=== PATIENT | female | born 1955 | race Caucasian/White ===

== ENCOUNTER → 2019-12-15 14:02 | Outpatient (CLI) | payer MEDICARE, SELFPAY ==
--- NOTE | ~2019-12-15 | MM_ITS ---
EXAMINATION: MM screening kofi BI w myra HISTORY: Screening mammogram TECHNIQUE: Craniocaudal and mediolateral oblique 3-D tomosynthesis images were obtained and synthetic 2-D images were generated. CAD analysis was submitted and interpreted. COMPARISON: 07/03/2018 diagnostic left digital mammogram and limited left breast ultrasound 06/29/2018 bilateral digital screening mammogram 06/25/2016 diagnostic left digital mammogram and limited left breast ultrasound 06/07/2016 bilateral digital screening mammogram BREAST PARENCHYMAL COMPOSITION: There are scattered areas of fibroglandular density. FINDINGS: There is no evidence of suspicious mass, calcification, or architectural distortion to sugg est malignancy in either breast. There has been no suspicious interval change. IMPRESSION: 1. No mammographic evidence of malignancy. 2. Recommend routine screening mammography in one year. BI-RADS Category 2: Benign finding(s). Reviewed, dictated and finalized at location A.
== END ==
PROVIDERS: Visit Provider Obstetrics & Gynecology
DX: Z12.31 Encounter for screening mammogram for malignant neoplasm of breast (principal)
CPT/HCPCS: 77063; 77067

== ENCOUNTER → 2021-02-07 17:46 | Outpatient (CLI) | payer MEDICARE, SELFPAY ==
--- NOTE | ~2021-02-07 | MM_ITS ---
EXAMINATION: MM screening kofi BI w myra HISTORY: Screening TECHNIQUE: Craniocaudal and mediolateral oblique 3-D tomosynthesis images were obtained and synthetic 2-D images were generated. CAD analysis was submitted and interpreted. COMPARISON: Comparison to multiple prior studies sequentially, with oldest reviewed study dated 06/07. BREAST PARENCHYMAL COMPOSITION: The breasts are heterogenously dense, which may obscure small masses FINDINGS: There is no evidence of suspicious mass, calcification, or architectural distortion to sugg est malignancy in either breast. There has been no suspicious interval change. IMPRESSION: 1. No mammographic evidence of malignancy. 2. Recommend routine screening mammography in one year. BI-RADS Category 1: Negative Reviewed, dictated and finalized at location A.
--- NOTE | ~2021-02-07 | DEXA_ITS ---
Bone Density Report Name: Elinor Garcia Age: 65 Sex: Female Ethnicity: White Date of : 1955 Indication: postmenopausal; screening for osteoporosis; parental hip fracture; height loss; Referring Provider: Frankie, Jenny Reina Study: Bone densitometry was performed. Exam Date: February 07, 2021 Accession number: [id number] Bone Density: Region BMD T-score Z-score Classification AP Spine (L1-L4) 1.001 -0.4 1.5 Normal Femoral Neck (Left) 0.669 -1.6 0.0 Osteopenia Total Hip (Left) 0.833 -0.9 0.4 Normal Femoral Neck (Right) 0.659 -1.7 -0.1 Osteopenia Total Hip (Right) 0.870 -0.6 0.8 Normal Total Hip Mean 0.852 -0.8 0.6 Normal World Health Organization criteria for BMD impression classify patients as: Normal (T-score at or above -1.0), Osteopenia (T-score between -1.0 and -2.5), or Osteoporosis (T-score at or below -2.5). 10-year Fracture Risk(1): Major Osteoporotic Fracture 20% Hip Fracture 3.0% Reported Risk Factors: [place] (), Neck BMD=0.659, BMI=23.4, parental fracture, alcohol use (1) FRAX(R) Version 3.08. Fracture probability calculated for an untreated patient. Fracture probability may be lower if the patient has received treatment. Previous Exams: Region Exam Age BMD T-score BMD Change BMD Change Date g/cm2 vs Baseline vs Previous AP Spine(L1-L4) 02/07/2021 65 1.001 -0.4 -0.038* -0.042* 05/08/2015 59 1.042 0.0 0.004 -0.015 04/08/2011 55 1.057 0.1 0.019 0.019 02/24/2008 52 1.039 -0.1 Total Hip(Left) 02/07/2021 65 0.833 -0.9 -0.051* -0.019 05/08/2015 59 0.851 -0.7 -0.032* -0.019 04/08/2011 55 0.870 -0.6 -0.013 -0.013 02/24/2008 52 0.883 -0.5 Total Hip(Right) 02/07/2021 65 0.870 -0.6 -0.028* -0.019 05/08/2015 59 0.889 -0.4 -0.009 -0.003 04/08/2011 55 0.893 -0.4 -0.006 -0.006 02/24/2008 52 0.898 -0.4 *Denotes significance at 95% confidence level, LSC for AP Spine = 0.022 g/cm2, LSC for Total Hip = 0.027 g/cm2 Clinical Information Provided by Patient: Parent has had a hip fracture Has 3 or more alcoholic drinks per day Has used the following medications: Vitamin D, [employer] Patient maximum height was 65.5 Menopause Age: 49 Drinks caffeinated beverages Onset of menses at age 11 Number of children 1
== END ==
PROVIDERS: PCP Family Medicine Adolescent Medicine; Visit Provider Nurse Practitioner Obstetrics & Gynecology
DX: Z78.0 Asymptomatic menopausal state (principal); Z12.31 Encounter for screening mammogram for malignant neoplasm of breast; M85.852 Other specified disorders of bone density and structure, left thigh; M85.851 Other specified disorders of bone density and structure, right thigh
CPT/HCPCS: 77063; 77067; 77080

== ENCOUNTER → 2022-03-21 09:30 | Outpatient (CLI) | payer MEDICARE, SELFPAY ==
--- NOTE | ~2022-03-21 | XR_ITS ---
XR hand RT min 3V DATE: 03/21/2022 10:03 INDICATION: Right hand pain TECHNIQUE: 3 views COMPARISON: None FINDINGS: There is osteopenia. There is severe osteoarthritic change at the triscaphe joint. There is osteophytic change at the merle culation between the lunate and capitate bones. Mild osteoarthritis at the first carpometacarpal join t. There is mild-moderate osteoarthritis at multiple interphalangeal joints. IMPRESSION: Polyarticular osteoarthritis Osteopenia Reviewed, dictated and finalized at location B.
== END ==
PROVIDERS: PCP Physician Assistant; Visit Provider Physician Assistant
DX: M18.11 Unilateral primary osteoarthritis of first carpometacarpal joint, right hand (principal); M19.041 Primary osteoarthritis, right hand
CPT/HCPCS: 73130

== ENCOUNTER 2022-06-04 00:55 | Day surgery (SDC) | payer MEDICARE, SELFPAY ==
[2022-05-22 11:30] VITALS: BMI 23.9
--- NOTE | 2022-06-03 14:00 | WPDANESEPPF ---
Anes - Initial Pre Proc Eval Procedure: Operation Date: 06/04/22 08:00 Proposed Procedures p Screening Colonoscopy - Feng Mahoney MD Date/Time: 06/03/22 14:00 Surgeon: Feng Mahoney MD Pre Op Diagnosis: neoplasm screening Patient Data Age: 66 Gender: F Height: 1.65 m Weight: 65.3 kg Allergies Allergy/AdvReac Type Severity Reaction Status Date / Time No Known Allergies Allergy Verified 06/04/22 06:45 Home Medications Medication Instructions Recorded Confirmed Type peg 3350-electrolytes 236 240 ml PO Q10M #4,000 mL 04/11/22 05/22/22 Rx gram-22.74 gram-6.74 gram-5.86 gram solution (Golytely) diclofenac sodium 75 mg 75 mg PO BID #60 tabs 04/17/22 05/22/22 Rx tablet,delayed release Patient hx anesthesia problems: none Family hx anesthesia problems: none Results Review: All pre-operative results and documents have been reviewed as part of the pre-operative evaluation. [facility] Family History Family History Father Family history of malignant melanoma Mother Bipolar disorder Other Cerebrovascular accident Diabetes mellitus Family history of cardiovascular disease Hypertension Social History Social History (Updated 03/21/22 @ 08:27 by Skye Osorio MA) Smoking status: Never smoker Second hand tobacco smoke exposure: No Alcohol intake: current Drinks per week: 15 Substance use: never Substance use type: does not use Living arrangements: alone Gender identity (if verbalized by the patient): Female Spiritual care concerns: No Agree to blood products: Yes Anes - Eval Final PreProcedure Day of Procedure 06/03/22 14:00 Patient weight: normal Heart: regular rate and rhythm Lungs: clear to auscultation Airway: Mallampati scale class II Neurological: alert and oriented Last oral intake: >/= 8 hours ASA classification: II Emergent: no Anesthetic plan: proceed Anesthesia type and monitoring: general GIVS and standard monitoring Results Review: All pre-operative results and documents have been reviewed as part of the pre-operative evaluation. Informed Consent: The patient's anesthetic plan and its attendant risks and benefits were discussed with the patient/family/POA. Questions were solicited and answers provided to the satisfaction of the patient/family/POA.
[2022-06-04 06:47] VITALS: BP 159/78; PULSE 64; RESP 18; TEMP 36.2; O2SAT 99
[2022-06-04] MEDS: LACTATED RINGERS 1,000 ML 150 ML IV CONT (06:54)
--- NOTE | 2022-06-04 07:23 | PM.IMHP ---
H&P: HPI History of Present Illness Date/Time: 06/04/22 07:23 Chief Complaint: Neoplasia screening. Narrative: This is a 66-year-old white female patient presents for screening colonoscopy. Patient's current weight appetite and bowel movements are normal. Patient denies abdominal pain. She has had no bleeding. Family history is noncontributory. Patient presents today for screening colonoscopy. Review of Systems Review of Systems: Review of systems noncontributory. [facility] Family History Family History Father Family history of malignant melanoma Mother Bipolar disorder Other Cerebrovascular accident Diabetes mellitus Family history of cardiovascular disease Hypertension Social History Social History (Updated 03/21/22 @ 08:27 by Skye Osorio MA) Smoking status: Never smoker Second hand tobacco smoke exposure: No Alcohol intake: current Drinks per week: 15 Substance use: never Substance use type: does not use Living arrangements: alone Gender identity (if verbalized by the patient): Female Spiritual care concerns: No Agree to blood products: Yes Meds Home Medications and Allergies Home Medications Medication Instructions Recorded Confirmed Type peg 3350-electrolytes 236 240 ml PO Q10M #4,000 mL 04/11/22 05/22/22 Rx gram-22.74 gram-6.74 gram-5.86 gram solution (Golytely) diclofenac sodium 75 mg 75 mg PO BID #60 tabs 04/17/22 05/22/22 Rx tablet,delayed release Allergies Allergy/AdvReac Type Severity Reaction Status Date / Time No Known Allergies Allergy Verified 06/04/22 06:45 Vital Signs Vital Signs - 24 hr 06/04/22 06:47 Temperature 97.1 F L Pulse Rate 64 Respiratory Rate 18 Blood Pressure 159/78 H Pulse Oximetry 99 Oxygen Delivery Room Air Exam Narrative: Physical exam reveals patient to be alert. Vital signs stable. HEENT exam is unremarkable. Patient is anicteric. Lungs are clear to auscultation and percussion. Heart is without murmur or extra sounds. Abdominal exam bowel sounds are present soft nontender with no organomegaly. Digital external rectal exam is normal. Assessment and Plan Assessment and plan (1) Encounter for screening colonoscopy: Code(s): Z12.11 - Encounter for screening for malignant neoplasm of colon Status: Acute Assessment and Plan: Patient presents today for screening colonoscopy. She appears to be at average risk for colon polyps. Further recommendations will be given after endoscopy.
[2022-06-04 07:56] VITALS: BP 115/58; PULSE 58; RESP 20; O2SAT 99
[2022-06-04 08:06] VITALS: BP 127/68; PULSE 59; RESP 22; O2SAT 100
[2022-06-04 08:16] VITALS: BP 141/85; PULSE 57; RESP 19; O2SAT 100
== END 2022-06-04 08:23 | disposition home or self-care (01) ==
PROVIDERS: PCP Physician Assistant; Visit Provider Internal Medicine Gastroenterology
PROC: 0DJD8ZZ Inspection of Lower Intestinal Tract, Via Natural or Artificial Opening Endoscopic (ICD-10-PCS; CPT 45378; principal; 2022-06-04 08:00)
DX: Z12.11 Encounter for screening for malignant neoplasm of colon (principal); K63.5 Polyp of colon; K57.30 Diverticulosis of large intestine without perforation or abscess without bleeding
CPT/HCPCS: 45385; 88305; J2001; J2704; J7120

== ENCOUNTER → 2023-07-08 12:26 | Outpatient (CLI) | payer MEDICARE, SELFPAY ==
--- NOTE | ~2023-07-08 | MM_ITS ---
EXAMINATION: MM screening kofi BI w myra HISTORY: Screening TECHNIQUE: Craniocaudal and mediolateral oblique 3-D tomosynthesis images were obtained and synthetic 2-D images were generated. CAD analysis was submitted and interpreted. COMPARISON: Comparison to multiple prior studies sequentially, with oldest reviewed study dated 06/07. BREAST PARENCHYMAL COMPOSITION: There are scattered areas of fibroglandular density. FINDINGS: There is no evidence of suspicious mass, calcification, or architectural distortion to sugg est malignancy in either breast. There has been no suspicious interval change. IMPRESSION: 1. No mammographic evidence of malignancy. 2. Recommend routine screening mammography in one year. BI-RADS Category 1: Negative Reviewed, dictated and finalized at location A.
== END ==
PROVIDERS: PCP Family Medicine Adolescent Medicine; Visit Provider Family Medicine Adolescent Medicine
DX: Z12.31 Encounter for screening mammogram for malignant neoplasm of breast (principal)
CPT/HCPCS: 77063; 77067

== ENCOUNTER 2024-09-13 15:06 | Emergency (ER) | payer MEDICARE, SELFPAY ==
--- NOTE | ~2024-09-13 | XR_ITS ---
XR hand RT min 3V Ordering provider: Tamiko Castro NP History: . swelling, pain prox metacarpals 2-4, fell 3 weeks ago . Comparison: None. FINDINGS: BONES: No acute fracture or dislocation. JOINT SPACES: Narrowing of the proximal and distal interphalangeal joints. Narrowing of the joint bet ween the lunate and capitate bone. Narrowing also of the joint between the scaphoid and trapezium bon e. SOFT TISSUES: Normal. IMPRESSION: No acute osseous abnormality right hand. Polyarticular osteoarthritic changes. Reviewed, dictated and finalized at location A. FICO BUSINESS ANALYST
[2024-09-13 15:18] VITALS: BP 147/93; PULSE 85; RESP 16; TEMP 36.8; O2SAT 98
--- NOTE | 2024-09-13 15:31 | ED_ITS ---
HPI - Extremity Injury (Upper) General Chief Complaint: Extremity Injury, Upper Stated Complaint: Xray Right Hand Time Seen by Provider: 09/13/24 15:40 Source: patient and RN notes reviewed Mode of arrival: ambulatory Limitations: no limitations History of Present Illness HPI narrative: 68-year-old female presents with concern for pain in her right dorsal hand. Reports about 3 weeks ago she fell and caught herself on her hand has been having pain since then. She reports swelling. She reports tenderness. She reports she has been taking steroids for another problem but they are not helping with her pain. She has a history of osteoarthritis. She denies decreased strength, sensation, range of motion in the digits MD complaint: injury to: right and hand Related Data Home Medications ?Medication ?Instructions ?Recorded ?Confirmed ?Last Taken ?Type prednisone 20 mg tablet mg 09/13/24 Unknown History Allergies Allergy/AdvReac Type Severity Reaction Status Date / Time No Known Allergies Allergy Verified 09/13/24 15:20 Review of Systems Review of Systems: CONSTITUTIONAL: Denies malaise, chills, sweats, or fever. CARDIOVASCULAR: Denies chest pain, palpitations, or edema. RESPIRATORY: Denies cough or dyspnea. SKIN: Denies rash or itching, bruising, redness MUSCULOSKELETAL: Reports right hand pain and swelling NEUROLOGIC: Denies numbness, weakness All systems reviewed & are unremarkable except as noted in HPI and below PMFSH Family History Family History Father Family history of malignant melanoma Mother Bipolar disorder Other Cerebrovascular accident Diabetes mellitus Family history of cardiovascular disease Hypertension Social History Social History Smoking status: Never smoker Second hand tobacco smoke exposure: No Alcohol intake: current Drinks per week: 15 Substance use: never Substance use type: does not use Lack of Transportation: No Lack of Food: Never True Current Housing: I Have Housing Concerned About Future Housing: No Difficulty Paying Gas/Electric Bills: No Difficulty Paying for Meds: No Currently Unemployed: No Education: Bachelor's Degree Difficulty w/ Childcare or Family Care: No Living arrangements: alone Occupation/Education: occupation Gender identity (if verbalized by the patient): Female Spiritual care concerns: No Agree to blood products: Yes Comments At time of signature, agree with nursing past medical, surgical, social and family history. There is no relevant family history pertinent to the presenting complaint Exam Narrative: GENERAL: Well-appearing, well-nourished, and in no acute distress. HEAD: Normocephalic EYES: PERRLA, conjunctivae clear NECK: Supple. CHEST: Speaks in full sentences. No respiratory distress. HEART: Regular rate and rhythm. Normal and equal peripheral pulses. EXTREMITIES: Right hand and digits of hand have normal strength and sensation. 5/5 strength with digit flexion, extension. Range of motion normal. No clubbing, cyanosis. Dorsal edema and tenderness noted. Skin intact. Normal digital cascade with flexion of fingers, median, ulnar and radial nerve intact. Normal sensation of each side of finger. Can perform 'okay' sign, 'cross over finger test of index and middle fingers' and 'thumbs up' sign. No scissoring. Normal thumb opposition. Good capillary refill and radial pulse. Distal capillary refill less than 3 seconds. Patient is right/left hand dominant SKIN: Warn, dry, intact, pink. No rash NEURO: Alert and oriented x3. PSYCH: Normal mood and affect Course Course Emergency Course: Patient is aware of diagnosis, understands and agrees to treatment plan. Anticipatory guidance given. Patient agrees to follow-up as directed and is aware of reasons to seek care at the emergency department. Portions of this record may have been created with voice recognition software Level of Care: Express Care Visit Vital Signs Vital signs: Vital Signs Temperature 98.3 F 09/13/24 15:18 Pulse Rate 85 09/13/24 15:18 Respiratory Rate 16 09/13/24 15:18 Blood Pressure 147/93 H 09/13/24 15:18 Pulse Oximetry 98 09/13/24 15:18 Temperature 98.3 F 09/13/24 15:18 Pulse Rate 85 09/13/24 15:18 Respiratory Rate 16 09/13/24 15:18 Blood Pressure 147/93 H 09/13/24 15:18 Pulse Oximetry 98 09/13/24 15:18 Reviewed. MDM - Extremity Injury (Upper) MDM Narrative Medical decision making narrative: Patients injury and pain is consistent with musculoskeletal etiology. No signs of neurological or vascular compromise on exam. Compartments and tissues are soft without signs of compartment syndrome. Pain is felt appropriate for further evaluation on an outpatient basis. Imaging Data My impression: Images reviewed, interpreted by radiologist, agree, see report. Radiologist's impression: Comparison: None. FINDINGS: BONES: No acute fracture or dislocation. JOINT SPACES: Narrowing of the proximal and distal interphalangeal joints. Narrowing of the joint between the lunate and capitate bone. Narrowing also of the joint between the scaphoid and trapezium bone. SOFT TISSUES: Normal. IMPRESSION: No acute osseous abnormality right hand. Polyarticular osteoarthritic changes. Critical Care Time Critical Care Time Critical Care Time: No Discharge Plan Discharge Clinical Impression: Hand pain, right Patient Disposition: Home, Self-Care Condition: Stable Instructions: Osteoarthritis (ED) Additional Instructions: Your x-ray is normal Avoid activities that cause pain until the pain subsides. Ice to the area 20-30 minutes 4-6 times a day Elevate above heart Elastic wrap as directed for comfort for the next 5-7 days Tylenol for lesser pain Anti-inflammatories as needed Follow up with your primary care provider if the condition is not improving within 1 week. If the condition worsens with numbness, tingling, decrease sensation with weakness seek treatment in the emergency room immediately. Patient Language: Vietnamese Prescriptions: No Action prednisone 20 mg tablet diclofenac sodium 75 mg tablet,delayed release (DR/EC) 75 mg PO BID Qty: 60 4RF tramadol 50 mg tablet 50 mg PO BID PRN (Reason: pain) Qty: 20 0RF Follow-up/Referrals: Zenon Abad MD [Primary Care Provider] - Time of Disposition: 16:17
== END 2024-09-13 16:22 | disposition home or self-care (01) ==
PROVIDERS: Emergency Provider Nurse Practitioner; PCP Family Medicine Adolescent Medicine
DX: M79.641 Pain in right hand (principal); Z79.899 Other long term (current) drug therapy; W19.XXXA Unspecified fall, initial encounter
CPT/HCPCS: 73130; 99213; G0463

== ENCOUNTER 2024-09-14 11:16 | Emergency (ER) | payer MEDICARE, SELFPAY ==
--- NOTE | ~2024-09-14 | CT_ITS ---
EXAMINATION: CT brain wo con DATE: 09/14/2024 11:35 INDICATION: Head injury. TECHNIQUE: Computed tomography (CT) of the head was performed without intravenous contrast. The mA wa s adjusted according to patient size. Iterative reconstruction technique was employed. The dose-lengt h product was 605.33 mGy-cm. COMPARISON: None FINDINGS: There is no intracranial hemorrhage, acute infarction, or abnormal intracranial mass lesion . The ventricles are normal in size. The orbits are normal. There is mild mucosal thickening in the p aranasal sinuses. The mastoid air cells are normal. IMPRESSION: 1. Normal brain. Reviewed, dictated and finalized at location A. UNT MANAGEMENT SPECIALIST IMPRESSION: 1. Normal brain.
[2024-09-14 11:20] VITALS: BP 145/81; PULSE 98; RESP 16; TEMP 36.4; O2SAT 98
[2024-09-14 12:18] VITALS: BP 132/83; PULSE 75; RESP 17; O2SAT 96
--- NOTE | 2024-09-14 12:27 | ED_ITS ---
HPI - Fall General Chief Complaint: Fall Stated Complaint: fell and hit head Time Seen by Provider: 09/14/24 11:23 History of Present Illness HPI Narrative: 68-year-old female presenting to the emergency department for chief complaint of a closed head injury. She has been starting taking a new medication including tramadol yesterday for her hand ache and arthritis pain. She states she felt slightly dizzy after taking this medication and did fall to the ground while in the bathroom and hit her head on the toilet C. she did reportedly lose consciousness but does not take any blood thinner medications. She is presently awake alert oriented has no acute complaints. She denies any headache, injuries, bleeding, nausea, vomiting. She has otherwise been acting appropriately, has family at bedside. Related Data Home Medications ?Medication ?Instructions ?Recorded ?Confirmed ?Last Taken ?Type prednisone 20 mg tablet mg 09/13/24 Unknown History Allergies Allergy/AdvReac Type Severity Reaction Status Date / Time No Known Allergies Allergy Verified 09/14/24 11:23 Review of Systems Review of Systems: As [facility] Family History Family History Father Family history of malignant melanoma Mother Bipolar disorder Other Cerebrovascular accident Diabetes mellitus Family history of cardiovascular disease Hypertension Social History Social History Smoking status: Never smoker Second hand tobacco smoke exposure: No Alcohol intake: current Drinks per week: 15 Substance use: never Substance use type: does not use Lack of Transportation: No Lack of Food: Never True Current Housing: I Have Housing Concerned About Future Housing: No Difficulty Paying Gas/Electric Bills: No Difficulty Paying for Meds: No Currently Unemployed: No Education: Bachelor's Degree Difficulty w/ Childcare or Family Care: No Living arrangements: alone Occupation/Education: occupation Gender identity (if verbalized by the patient): Female Spiritual care concerns: No Agree to blood products: Yes Exam Narrative: GENERAL: [Well-appearing, well-nourished, and in no acute distress.] HEAD: Posterior scalp hematoma but no obvious bleeding or any palpable step- offs deformities. Otherwise normocephalic EYES: [PERRLA and EOMI.] ENT: Nares clear, no rhinorrhea or epistaxis. Mucous membranes moist. NECK: Supple. CHEST: [Clear to auscultation. No respiratory distress.] HEART: [Regular rate and rhythm]. No murmur heard. [Normal peripheral pulses.] ABDOMEN: [Soft, nondistended], [nontender], [No rigidity or guarding] EXTREMITIES: Normal range of motion. [No edema.] SKIN: Warm, dry, no rash. NEURO: [No focal deficits]. Alert and oriented [x3.] PSYCH: [Normal mood and affect.] Course Vital Signs Vital signs: Vital Signs Temperature 36.4 C 09/14/24 11:20 Pulse Rate 98 09/14/24 11:20 Respiratory Rate 16 09/14/24 11:20 Blood Pressure 145/81 H 09/14/24 11:20 Pulse Oximetry 98 09/14/24 11:20 Oxygen Delivery Room Air 09/14/24 11:20 Temperature 36.4 C 09/14/24 11:20 Pulse Rate 75 09/14/24 12:18 Respiratory Rate 17 09/14/24 12:18 Blood Pressure 132/83 09/14/24 12:18 Pulse Oximetry 96 09/14/24 12:18 Oxygen Delivery Room Air 09/14/24 11:20 MDM - Fall MDM Narrative Medical decision making narrative: 68-year-old female presenting to the emergency department for evaluation of a closed head injury. She recently started taking tramadol for osteoarthritis pain right hand. She fell today while feeling dizzy after taking this medication for the 1st time. She did strike her head and lose consciousness. Awake presently alert oriented x4, no neurological complaints, no headache, vision changes, chest pain, shortness a breath. She has a occipital scalp hematoma without any bleeding. CT head was obtained at this time given her age and risk factors. She is not any blood thinner medications. CT scan was performed and shows normal aging brain without any acute intracranial process. She is stable for discharge home at this time given her return to baseline mentation without any concerning findings on her imaging studies. She was given return precautions and precautions on taking her tramadol at this time. Medical Records Attestation: I reviewed the patient's medical records. Imaging Data Attestation: I personally reviewed and interpreted this imaging study as follows: My impression: Impressions Head CT 09/14/24 11:36 IMPRESSION: 1. Normal brain. Discharge Plan Discharge Clinical Impression: CHI (closed head injury), Scalp hematoma Patient Disposition: Home, Self-Care Condition: Stable Instructions: Antibiotic Form, Head Injury (ED), Contusion in Adults (ED) Additional Instructions: Follow-up with your regular primary care provider, ibuprofen Tylenol any headache. Caution using her tramadol and would cut back on the dose if it is causing his symptoms. You can take 25 mg instead of 50 mg tablets. Return with any new or worsening concerns at any time Patient Language: American Prescriptions: No Action prednisone 20 mg tablet diclofenac sodium 75 mg tablet,delayed release (DR/EC) 75 mg PO BID Qty: 60 4RF tramadol 50 mg tablet 50 mg PO BID PRN (Reason: pain) Qty: 20 0RF Follow-up/Referrals: Zenon Aabd MD [Primary Care Provider] - Time of Disposition: 12:39
== END 2024-09-14 12:46 | disposition home or self-care (01) ==
PROVIDERS: Emergency Provider Student in an Organized Health Care Education/Training Program; PCP Family Medicine Adolescent Medicine
DX: S00.03XA Contusion of scalp, initial encounter (principal); W18.30XA Fall on same level, unspecified, initial encounter; M19.90 Unspecified osteoarthritis, unspecified site
CPT/HCPCS: 70450; 99284

== ENCOUNTER 2024-10-08 09:13 | Outpatient (CLI) | payer MEDICARE, SELFPAY ==
[2024-10-08 18:13] LABS: Vitamin D 25 Hydroxy 39.7 ng/mL
[2024-10-08 18:31] LABS: Alanine Aminotransferase 18 U/L (6-35); Albumin Level 4.2 g/dL (3.5-5.1); Alkaline Phosphatase 64 U/L (38-126); Anion Gap 6 mmol/L (4-12); Aspartate Amino Transferase 27 U/L (14-36); Bilirubin,Total 0.6 mg/dL (0.2-1.3); Blood Urea Nitrogen 12 mg/dL (7-17); Calcium 9.3 mg/dL (8.4-10.2); Carbon Dioxide 32 mmol/L (22-30); Chloride 104 mmol/L (98-107); Estimated Glomerular Filt Rate > 60; Glucose 87 mg/dL (65-110); Sodium 142 mmol/L (137-145)
[2024-10-08 21:02] LABS: Hemoglobin A1C 6.2 % (<5.7)
--- OUTSIDE RECORDS SUMMARY | 2024-10-14 05:55 | XMS_ITS | Continuity of Care Document ---
Author Organization [facility] Address [address] [place] [address] [address] [place] [address] Phone Care Team Providers Care Pharmacy Helper Name Role Phone Goff OD, Feng Unavailable Unavailable Procedures Procedure Date Eye Exam & Treatment Advance Directives Directive Yes / No Effective Date File Name No Information Encounters Encounter Description Practice Location Reason(s) For Visit Diagnoses Date Provider Providers Copied on Encounter [facility], [id number] [place] [address] [address], [place], [place], [id number], [place] tel:[phone] [facility] (formerly [facility])[3] No Information [phone] Goff OD Feng. [address] , [address], [place], [address], [place]. tel:[phone] Family History Family Member Type Diagnosis Age At Onset No Information Payers Payer name Insurance type Covered libertarian ID Authoriza tion(s) No Information Social History Type Description Quantity Date Captured Comments Sex Female Smoking Status No Information Chief Complaint And Reason For Visit No Information Reason For Referral Reason For Referral No Information History Of Present Illness Encounter Date Complaint History Of Prese nt Illness No Information Functional Status Date Functional Assessmen t No Information Instructions Date Instruction Additional Infor mation No Information Assessments Type Assessment Date No Information Patient Care Teams Name Effective Dates (start - stop) Status Members No Information
== END 2024-10-08 09:14 | disposition home or self-care (01) ==
PROVIDERS: PCP Family Medicine Adolescent Medicine; Visit Provider Nurse Practitioner Family
DX: E78.5 Hyperlipidemia, unspecified (principal); Z13.220 Encounter for screening for lipoid disorders; M85.80 Other specified disorders of bone density and structure, unspecified site; R73.01 Impaired fasting glucose
CPT/HCPCS: 36415; 80053; 82306; 83036

== ENCOUNTER 2025-03-14 09:19 | Outpatient (CLI) | payer MEDICARE, SELFPAY ==
--- NOTE | ~2025-03-14 | DEXA_ITS ---
Bone Density Report Name: RHIANNA GUTIÉRREZ Age: 69 Sex: Female Ethnicity: White Date of : 1955 Indication: postmenopausal; screening for osteoporosis; parental hip fracture; height loss; Referring Provider: SHERMAN BAUTISTA Study: Bone densitometry was performed. Exam Date: March 14, 2025 Accession number: [id number] Bone Density: Region BMD T-score Z-score Classification AP Spine(L1-L4) 0.993 -0.5 1.7 Normal Femoral Neck (Left) 0.669 -1.6 0.2 Osteopenia Total Hip (Left) 0.870 -0.6 1.0 Normal Femoral Neck (Right) 0.639 -1.9 0.0 Osteopenia Total Hip (Right) 0.862 -0.7 0.9 Normal Total Hip Mean 0.866 -0.7 1.0 Normal World Health Organization criteria for BMD impression classify patients as: Normal (T-score at or above -1.0), Osteopenia (T-score between -1.0 and -2.5), or Osteoporosis (T-score at or below -2.5). 10-year Fracture Risk(1): Major Osteoporotic Fracture 18% Hip Fracture 5.3% Reported Risk Factors: [place] (), Neck BMD=0.639, BMI=24.6, parental fracture (1) FRAX(R) Version 3.08. Fracture probability calculated for an untreated patient. Fracture probability may be lower if the patient has received treatment. Clinical Information Provided by Patient: Parent has had a hip fracture Has used the following medications: multivitamin Patient maximum height was 65.5 Menopause Age: 49 Drinks caffeinated beverages Onset of menses at age 11 Number of children 1 Impression: The patient has low bone mass, based on the Right Femoral Neck T-score. The patient has an estimated ten-year risk of hip fracture of 5.3% and an estimated ten-year risk of major fracture of 18%, based on the WHO FRAX algorithm. The patient has risk factors, including: parental hip fracture. Discussion: BONE DENSITY IS LOW AT ONE OR MORE SKELETAL SITES. THE PATIENT'S BMD AND CLINICAL RISK FACTORS CONTRIBUTE TO THIS PATIENT'S INCREASED RISK OF FRACTURE. This patient's lowest T-score is low at one or more skeletal sites. It meets the World Health Organization's (WHO) criteria for ?low bone mass? (T-score between -1.0 and -2.5). The patient's 10-year risk of hip fracture as calculated by FRAX exceeds the threshold where pharmacological therapy is recommended by the National Osteoporosis Foundation (NOF). However, all treatment decisions require clinical judgment and consideration of individual patient factors, including patient preferences, comorbidities, previous drug use, risk factors not captured in the FRAX model (e.g., frailty, falls, vitamin D deficiency, increased bone turnover, interval significant decline in bone density) and possible under or overestimation of fracture risk by FRAX. The patient should follow a healthful lifestyle (good nutrition with adequate calcium and vitamin D, and appropriate weight-bearing exercise). Follow-Up: Consider a repeat BMD and Vertebral Fracture Assessment (VFA) exam in 2 years or sooner if medically necessary, to reassess this patient's status. Reported by: BRI on 03/14/2025 11:07:00 AM. Reviewed, dictated and finalized at location A.
--- NOTE | ~2025-03-14 | MM_ITS ---
EXAMINATION: MM screening kofi BI w myra HISTORY: Screening mammogram TECHNIQUE: Craniocaudal and mediolateral oblique 3-D tomosynthesis images were obtained and synthetic 2-D images were generated. CAD analysis was submitted and interpreted. COMPARISON: 07/08/2023, 02/07/2021, 12/15/2019 BREAST PARENCHYMAL COMPOSITION:Dense: The breasts are heterogeneously dense, which may obscure small masses. FINDINGS: No suspicious mass, calcification, or architectural distortion are identified in either glen ast to suggest malignancy. There has been no suspicious interval change. IMPRESSION: No mammographic evidence of malignancy. Recommend routine screening mammography in one year. BI-RADS Category 1: Negative Reviewed, dictated and finalized at location .
== END 2025-03-14 09:20 | disposition home or self-care (01) ==
PROVIDERS: PCP Family Medicine Adolescent Medicine; Visit Provider Nurse Practitioner Family
DX: Z12.31 Encounter for screening mammogram for malignant neoplasm of breast (principal); M85.89 Other specified disorders of bone density and structure, multiple sites; Z78.0 Asymptomatic menopausal state; Z13.820 Encounter for screening for osteoporosis
CPT/HCPCS: 77063; 77067; 77080